=== PATIENT | male | born 1990 | race Caucasian/White ===

== ENCOUNTER 2019-08-12 18:09 | Emergency (ER) | payer SELFPAY ==
[2019-08-12] MEDS ORDERED: HYDROCODONE/APAP 7.5/325 MG TAB ONE (20:40)
[2019-08-12] MEDS ORDERED: CLINDAMYCIN IV 150 MG/ML (4 mL) VIAL ONE (20:40)
[2019-08-12 21:09] VITALS: TEMP 99
[2019-08-12 21:11] VITALS: BP 122/85; O2SAT 100
--- NOTE | 2019-08-13 19:21 | EDPHYS ---
Physician Documentation [facility] Name: Deepa Oseguera Age: 28 yrs Sex: Male : 1990 Arrival Date: 08/12/2019 Time: 18:10 Bed 6 Private MD: ED Physician Mundo Hou HPI: 08/11 20:27 This 28 yrs old Male presents to ER via Ambulatory with complaints of Mouth pkl Problem, Jaw Pain. 20:27 The patient presents with pain. The problem is located in the right jaw. Onset: The pkl symptoms/episode began/occurred today. Historical: - Allergies: 18:43 Unknown ABX; ca1 - Home Meds: 18:43 None [Active]; ca1 - PMHx: 18:43 None; ca1 - PSHx: 18:43 Tonsillectomy; ca1 - Immunization history:: Adult Immunizations up to date. - Social history:: Smoking status: Patient reports the use of cigarette tobacco products, denies chronic smoking, but will smoke occasionally. ROS: 20:27 Eyes: Negative for injury, pain, redness, and discharge. pkl 20:27 ENT: Positive for dental pain, ear pain, of the right jaw. 20:27 Neck: Negative for stiffness. 20:27 Cardiovascular: Negative for chest pain. 20:27 Respiratory: Negative for cough, shortness of breath. 20:27 Abdomen/GI: Negative for abdominal pain, nausea, vomiting, and diarrhea. 20:27 Back: Negative for acute changes. 20:27 : Negative for injury or acute deformity. 20:27 MS/extremity: Negative for acute changes. 20:27 Skin: Negative for rash. 20:27 Neuro: Negative for altered mental status. Exam: 20:27 Head/face: Noted is swelling, that is mild, of the right jaw. pkl 20:27 Eyes: Exam is negative for acute changes. 20:27 ENT: Dental exam: abscess, that is mild, gum swelling, that is mild, pain, that is moderate, specifically in the lower right third molar (#32). 20:27 Neck: Exam negative for nuchal rigidity. 20:27 Chest/axilla: Exam negative for acute changes. 20:27 Cardiovascular: Rate: normal, Rhythm: 20:27 Respiratory: the patient does not display signs of respiratory distress, Respirations: normal, Breath sounds: are clear throughout. 20:27 Abdomen/GI: Bowel sounds: normal, Palpation: abdomen is soft and non-tender, in all quadrants. 20:27 Back: Exam negative for acute changes. 20:27 : Exam negative for acute changes. 20:27 Musculoskeletal/extremity: Exam is negative for acute changes. 20:27 Skin: Exam negative for rash. 20:27 Neuro: Orientation: is normal, Mentation: is normal, Cranial nerves: grossly normal, Motor: is normal. Vital Signs: 18:40 BP 129 / 66; Pulse 93; Resp 18 S; Temp 99(TE); Pulse Ox 99% on R/A; Weight 92.99 kg ca1 (R); Height 5 ft. 10 in. (177.80 cm) (R); Pain 10/10; 20:56 BP 122 / 85; Pulse 90; Resp 18; Temp 99; Pulse Ox 100% on R/A; mg2 18:40 Body Mass Index 29.41 (92.99 kg, 177.80 cm) ca1 MDM: 20:19 Patient medically screened. pkl 20:27 Data reviewed: vital signs, nurses notes. ED course: Advised to follow up with Dentist pkl in 2 to 3 days. patient understood instructions. Administered Medications: 20:38 Drug: Clindamycin 600 mg Route: IM; Site: left gluteus; mg2 20:56 Follow up: Response: No adverse reaction mg2 20:39 Drug: [place] (7.5 mg-325 mg) 1 tabs Route: PO; mg2 20:56 Follow up: Response: No adverse reaction mg2 Disposition: 08/12/19 20:34 Discharged to Home. Impression: Dental abscess. - Condition is Stable. - Prescriptions for Ultram 50 mg Oral Tablet - take 1 tablet by ORAL route every 8 hours As needed; 15 tablet. Clindamycin HCl 300 mg Oral Capsule - take 1 capsule by ORAL route every 6 hours for 7 days; 28 capsule. - Medication Reconciliation Form, Thank You Letter, Antibiotic Education, Prescription Opioid Use form. - Follow up: Private Physician; When: 2 - 3 days; Reason: Re-evaluation by your physician. - Problem is new. - Symptoms are unchanged. Signatures: Mundo Hou MD MD pkl John Latif RN RN mg2 Yeny De Leon RN RN ca1 Corrections: (The following items were deleted from the chart) 20:57 20:34 08/12/2019 20:34 Discharged to Home. Impression: Dental abscess. Condition is mg2 Stable. Forms are Medication Reconciliation Form, Thank You Letter, Antibiotic Education, Prescription Opioid Use. Follow up: Private Physician; When: 2 - 3 days; Reason: Re-evaluation by your physician. Problem is new. Symptoms are unchanged. pkl
--- NOTE | 2019-08-13 19:21 | ER ---
Nurse's Notes [facility] Name: Deepa Oseguera Age: 28 yrs Sex: Male : 1990 Arrival Date: 08/12/2019 Time: 18:10 Bed 6 Private MD: Diagnosis: Dental abscess Presentation: 08/11 18:40 Chief complaint: Patient states: Tooth abscess R side since today, R jaw and R face ca1 swelling. Reports pain and pressure on R eye, R ear. Coronavirus screen: Proceed with normal triage. Patient denies a cough. Patient denies shortness of breath or difficulty breathing. Patient denies measured and/or subjective temperature greater than 100.4F prior to today's visit. Patient denies travel on a cruise ship or to a country the [facility] currently lists as an affected area. Patient denies contact with known and/or suspected case of COVID-19. Ebola Screen: Patient negative for fever greater than or equal to 101.5 degrees Fahrenheit, and additional compatible Ebola Virus Disease symptoms Patient denies exposure to infectious person. Patient denies travel to an Ebola-affected area in the 21 days before illness onset. No symptoms or risks identified at this time. Initial Sepsis Screen: Does the patient meet any 2 criteria? No. Patient's initial sepsis screen is negative. Does the patient have a suspected source of infection? No. Patient's initial sepsis screen is negative. Risk Assessment: Do you want to hurt yourself or someone else? Patient reports no desire to harm self or others. Onset of symptoms was August 12, 2019. 18:40 Method Of Arrival: Ambulatory ca1 18:40 Acuity: LC 4 ca1 Historical: - Allergies: 18:43 Unknown ABX; ca1 - Home Meds: 18:43 None [Active]; ca1 - PMHx: 18:43 None; ca1 - PSHx: 18:43 Tonsillectomy; ca1 - Immunization history:: Adult Immunizations up to date. - Social history:: Smoking status: Patient reports the use of cigarette tobacco products, denies chronic smoking, but will smoke occasionally. Screenin:16 Abuse screen: Denies threats or abuse. Nutritional screening: No deficits noted. ea Tuberculosis screening: No symptoms or risk factors identified. Fall Risk None identified. Assessment: 20:15 General: Appears in no apparent distress. Behavior is calm, cooperative, appropriate ea for age. Pain: Complains of pain in mouth and right jaw. Neuro: Level of Consciousness is awake, alert, obeys commands, Oriented to person, place, time. Cardiovascular: Patient's skin is warm and dry. Respiratory: Airway is patent Respiratory effort is even, unlabored, Respiratory pattern is regular, symmetrical. Derm: Skin is pink, warm \T\ dry. Vital Signs: 18:40 BP 129 / 66; Pulse 93; Resp 18 S; Temp 99(TE); Pulse Ox 99% on R/A; Weight 92.99 kg ca1 (R); Height 5 ft. 10 in. (177.80 cm) (R); Pain 10/10; 20:56 BP 122 / 85; Pulse 90; Resp 18; Temp 99; Pulse Ox 100% on R/A; mg2 18:40 Body Mass Index 29.41 (92.99 kg, 177.80 cm) ca1 ED Course: 18:10 Patient arrived in ED. ag5 18:42 Triage completed. ca1 18:43 Arm band placed on right wrist. ca1 19:41 Terese Savage, RN is Primary Nurse. ea 20:16 Patient has correct armband on for positive identification. Bed in low position. Call ea light in reach. Side rails up X2. 20:19 Mundo Hou MD is Attending Physician. pkl 20:39 No provider procedures requiring assistance completed. Patient did not have IV access mg2 during this emergency room visit. Administered Medications: 20:38 Drug: Clindamycin 600 mg Route: IM; Site: left gluteus; mg2 20:56 Follow up: Response: No adverse reaction mg2 20:39 Drug: [place] (7.5 mg-325 mg) 1 tabs Route: PO; mg2 20:56 Follow up: Response: No adverse reaction mg2 Outcome: 20:34 Discharge ordered by . pkl 20:56 Discharged to home ambulatory. mg2 20:56 Condition: stable 20:56 Discharge instructions given to patient, Instructed on discharge instructions, follow up and referral plans. medication usage, Demonstrated understanding of instructions, follow-up care, medications, Prescriptions given X 2. 20:57 Patient left the ED. mg2 Signatures: Mundo Hou MD MD pkTerese Munguia RN RN ea [place], Michele, RN RN mg2 Acob, Cheryl, RN RN ca1 Gaskin, Ashleigh ag5
== END 2019-08-12 20:57 | disposition home or self-care (01) ==
LOC: ER 18:09
DX: K04.7 Periapical abscess without sinus (principal); Z72.0 Tobacco use; Z88.1 Allergy status to other antibiotic agents
CPT/HCPCS: 96372; 99283; S0077